=== PATIENT | female | born 1965 | race Caucasian/White ===

== ENCOUNTER 2018-05-16 16:36 | Emergency (ER) | payer OTHER ==
[2018-05-16] MEDS ORDERED: Diphtheria,Pertussis(Acell),Tetanus Vaccine 0.5 ML SDV IM ONE (16:52)
[2018-05-16 17:06] LABS: CHLORIDE,CL 102 mmol/L (98-107); SODIUM,NA 137 mmol/L (136-145)
[2018-05-16] MEDS ORDERED: Bacitracin/Neomycin/Polymyxin B Oint 0.9 GM U/D Packet ONE (17:42)
--- NOTE | 2018-05-16 18:58 | ER ---
HISTORY OF PRESENT ILLNESS: The patient is a 52-year-old, who was involved in a trauma. The patient was horseback riding when the horse fell into a hole, and she was dropped and the horse did a somersault and landed on her. She came in for evaluation. PHYSICAL EXAMINATION: HEENT: She is normocephalic, atraumatic. Eyes PERRLA. Extraocular movement intact. Throat was clear. Her pupils were 3 mm. GENERAL: She was alert and oriented. Denies loss of consciousness. NECK: Supple. No masses, no organomegaly. LUNGS: Clear. HEART: Regular rate and rhythm. CHEST: Symmetrical expansion. No rales, no rhonchi, no wheezing. There was some abrasions superficial on the right shoulder, her abdomen was soft, nontender. Her pelvis was stable to palpation. She fell off the horse and rode the horse right back out. She does have pain in her right knee on the inner aspect of her knee. At this time, she has full range of motion. She was able to ambulate. X-rays reveal no fractures. She does have a laceration on the right inner thigh, this was approximately 3 cm and was a jagged and it looked like a saw cut her. We went ahead and aligned the incision and united all 3. This made the laceration about 4 cm long and using interrupted nylon, 5 stitches were applied. The patient tolerated well the procedure after local anesthesia was given. ASSESSMENT: Trauma secondary to horse fall, laceration of the inner thigh. This was repaired as explained above. Acell was given 0.5 and the patient will be sent home. She is to take Tylenol for pain and have her sutures removed in 10 days. She is to follow up with her primary at home for suture removal or she could return to the clinic here and have them removed. THOMAS Golden MD /[id number]
== END 2018-05-16 18:03 | disposition home or self-care (01) ==
LOC: LL.ED 16:36
DX: S71.111A Laceration without foreign body, right thigh, initial encounter (principal); V80.010A Animal-rider injured by fall from or being thrown from horse in noncollision accident, initial encounter
CPT/HCPCS: 12002; 36415; 73562-RT; 80053; 85025; 90471; 90715; 96372; 99284